=== PATIENT | female | born 1955 | race Caucasian/White ===

== ENCOUNTER 2018-05-25 06:16 | Observation (INO) | payer BC ==
[2018-05-25] VITALS (7 sets, daily range): BP systolic 92–138; BP diastolic 51–62
[~2018-05-25] VITALS: Ht 160 cm; Wt 93.0 kg
[~2018-05-25 06:16] MED LIST: GLIM2TAB2 PO; HYDR12.58 PO; INSU100V13 SQ; LEVO137T3 PO; LISI10TA2 PO; LORA1TAB47 PO; METF10007 PO; PITA2TAB2 PO; VIT1TABL34 PO
[2018-05-25] MEDS: IV RINGERS,LACTATED 1000ML 1,000 ML IV SCH ×2 (06:53→09:57)
[2018-05-25] MEDS ORDERED: fentaNYL PF VIAL 100 MCG/2 ML VIAL IV PRN (07:00)
[2018-05-25] MEDS ORDERED: ONDANSETRON PF 4 MG/2 ML VIAL. IV PRN ×2 (07:00→09:30)
[2018-05-25] MEDS ORDERED: LIDOCAINE 1% PF 2 ML VIAL. ID PRN (07:00)
[2018-05-25] MEDS ORDERED: PROCHLORPERAZINE 10 MG/2 ML VIAL. IV PRN (07:00)
[2018-05-25] MEDS ORDERED: HYDROmorphone 2 MG/ML VIAL IV PRN (07:00)
[2018-05-25] MEDS ORDERED: MIDAZOLAM HCL/PF 2 MG/2 ML VIAL. ONE (07:26)
[2018-05-25] MEDS ORDERED: ROCURONIUM 50 MG/5 ML VIAL. ONE (07:26)
[2018-05-25] MEDS ORDERED: fentaNYL PF VIAL 100 MCG/2 ML VIAL ONE ×2 (07:26→09:11)
[2018-05-25] MEDS ORDERED: PROPOFOL 20 ML IV ONE (07:27)
[2018-05-25] MEDS ORDERED: DEXAMETHASONE SOD PHOS 20 MG/5 ML VIAL. ONE (07:27)
[2018-05-25] MEDS ORDERED: SEVOFLURANE 61 TO 120 MINUTES. IH ONE (07:27)
[2018-05-25] MEDS ORDERED: ONDANSETRON PF 4 MG/2 ML VIAL. ONE (07:27)
[2018-05-25] MEDS ORDERED: PHENYLEPHRINE in 0.9% NACL PF 1 MG/10 ML SYRINGE. IV ONE (07:51)
[2018-05-25] MEDS ORDERED: GLYCOPYRROLATE 1 MG/5 ML VIAL. ONE (08:43)
[2018-05-25] MEDS ORDERED: NEOSTIGMINE METHYLSULFATE 5 MG/5 ML SYRINGE. ONE (08:44)
[2018-05-25] MEDS ORDERED: KETOROLAC 30 MG/ML INJ FOR OR. INJ ONE (09:08)
[2018-05-25] MEDS ORDERED: 0.9 % SODIUM CHLORIDE 10 ML DISP.SYRIN. IV PRN (09:30)
[2018-05-25] MEDS ORDERED: diphenhydrAMINE HCL 25 MG CAPSULE PO PRN (09:30)
[2018-05-25] MEDS ORDERED: oxyCODONE IR 5 MG TABLET PO PRN (09:30)
[2018-05-25] MEDS ORDERED: DEXTROSE 50% 25 GM / 50ML DISP.SYRIN. IV PRN (09:30)
[2018-05-25] MEDS ORDERED: MORPHINE SULFATE 2 MG/ML VIAL. IV PRN ×2 (09:30→10:15)
--- NOTE | 2018-05-25 09:36 | PDOC4 ---
Operative Note Operative Note Operative Note: Preoperative Diagnosis: Ventral hernia Postoperative Diagnosis: Same Procedure: Ventral hernia repair with mesh Surgeon: Dionte Technical Inspector: Eliot TAI Anesthesia: Gen. EBL: 25 mL Specimen: Hernia sac to pathology Drains: 19 Kyr[place]z round Pa drain to abdominal wall Complications: None Indication: The patient is a 62-year-old female who is referred due to a sizable mid abdominal hernia. She was offered surgical repair and we discussed the use of mesh. The risks of surgery were reviewed which include bleeding, infection, recurrence, pain, mesh reaction, bowel injury, anesthetic risk, potential need for additional surgery or procedure. She understands and would like to proceed. Description: The patient was taken to the operating room and placed supine on the operating table. Gen. anesthesia was performed. The abdomen was prepped with ChloraPrep and draped with sterile towels, sheets, and an Ioban. A vertical midline incision was made superior to the umbilicus and the location of the hernia. Cautery dissection was carried down into the subcutaneous tissues. The hernia sac was quite large and occupied a significant area of the subcutaneous space. The hernia sac was fully mobilized down to the level of the fascial defect. The hernia sac was opened and numerous adhesions of omentum to the sac were mobilized. The omentum was then reduced. Much of the excess redundant hernia sac was excised and sent to pathology. An elliptical Ventrio ST mesh was utilized for the repair. The mesh was placed intraperitoneally with the barrier facing the viscera. The mesh provided wide coverage of the hernia defect with overlap in all directions. The mesh was sutured around its periphery using interrupted 0 Prolene stitches placed in a horizontal mattress fashion. The secure strap tacking device was then used for additional fixation to the fascia. The attenuated fascia was then closed over the mesh with 0 Prolene. The subcutaneous tissue was approximated with 2-0 and 3-0 Vicryl. The skin was approximated with a 4-0 Monocryl suture. The patient tolerated the procedure well and was sent to the recovery room in stable condition. At the end of the case all counts were correct. PAYAL HEREDIA MD May 25, 2018 09:36
[2018-05-25] MEDS: fentaNYL PF VIAL 100 MCG/2 ML VIAL IV PRN ×3 (09:44→10:11)
[2018-05-25] MEDS ORDERED: MORPHINE SULFATE 4 MG/ML VIAL. IV PRN ×2 (10:15)
[2018-05-25] MEDS: MORPHINE SULFATE 2 MG/ML VIAL. IV PRN ×2 (10:22→10:41)
[2018-05-25] MEDS: IV 1/2 NORMAL SALINE 1,000 ML IV SCH (11:25)
[2018-05-25] MEDS: INSULIN LISPRO 300 UNITS/3 ML INSULN.PEN. SQ SCH ×2 (12:32→16:56)
[2018-05-25] MEDS: oxyCODONE IR 5 MG TABLET PO PRN ×2 (16:51→21:03)
[2018-05-25] MEDS: metFORMIN 500 MG TABLET PO SCH (16:51)
[2018-05-25] MEDS ORDERED: ATORVASTATIN CALCIUM 10 MG TABLET. PO SCH (21:00)
[2018-05-25] MEDS ORDERED: INSULIN GLARGINE 300 UNITS/3 ML INSULN.PEN. SQ SCH (21:00)
[2018-05-25] MEDS: MULTIVITAMIN I-VITE TABLET. PO SCH (21:01)
[2018-05-26] MEDS: IV 1/2 NORMAL SALINE 1,000 ML IV SCH ×2 (00:30→12:17)
[2018-05-26 03:25] VITALS: BP 93/53
[2018-05-26] MEDS: oxyCODONE IR 5 MG TABLET PO PRN ×3 (04:59→12:58)
[2018-05-26 07:00] VITALS: BP 121/63
[2018-05-26] MEDS ORDERED: LEVOTHYROXINE 137 MCG TABLET PO SCH (07:30)
[2018-05-26] MEDS: INSULIN LISPRO 300 UNITS/3 ML INSULN.PEN. SQ SCH ×2 (07:50→11:59)
[2018-05-26] MEDS: metFORMIN 500 MG TABLET PO SCH (08:56)
[2018-05-26] MEDS: MULTIVITAMIN I-VITE TABLET. PO SCH (08:56)
[2018-05-26] MEDS ORDERED: hydroCHLOROthiazide 12.5 MG CAPSULE PO SCH (09:00)
[2018-05-26] MEDS ORDERED: PSEUDOEPHEDRINE PO SCH (09:00)
[2018-05-26] MEDS ORDERED: PSEUDOEPHEDRINE ER 120 MG TABLET.ER. PO SCH (09:00)
[2018-05-26] MEDS ORDERED: CETIRIZINE HCL 10 MG TABLET. PO SCH (09:00)
[2018-05-26] MEDS ORDERED: LISINOPRIL 10 MG TABLET PO SCH (09:00)
[2018-05-26] MEDS ORDERED: GLIMEPIRIDE 2 MG TABLET. PO SCH (09:00)
[2018-05-26] MEDS ORDERED: LORATADINE PO SCH (09:00)
[2018-05-26 11:00] VITALS: BP 126/66
--- NOTE | 2018-05-26 11:16 | PDOC ---
ROSY SARMIENTO AUTOMATIC WHEEL LINE OPERATOR 05/26/18 1116: SURGICAL PROGRESS NOTE Subjective has not been up yet since surgery significant complaints of pain desat and required 02 this AM Vital Signs Vital Signs Date Time Temp Pulse Resp B/P (MAP) Pulse Ox O2 Delivery O2 Flow Rate FiO2 05/26/18 08:57 102 121/63 05/26/18 08:55 16 Nasal Cannula 2.0 05/26/18 07:00 98.6 91 98.6 I&O Intake and Output 05/26/18 07:00 Intake Total 2720 ml Output Total 25 ml Balance 2695 ml Intake Oral 600 ml IV Total 1560 ml Other 560 ml Output Estimated Blood Loss 25 ml General: Alert, Oriented X3, Cooperative, No acute distress Abdomen: Soft, Other (binder in place, ISAIAH serosang) Labs Laboratory Tests Test 05/25/18 09:34 05/25/18 12:21 05/25/18 16:51 05/25/18 20:40 Glucose (Fingerstick) 198 mg/dL (70-99) 203 mg/dL (70-99) 202 mg/dL (70-99) 208 mg/dL (70-99) Test 05/26/18 07:27 Glucose (Fingerstick) 137 mg/dL (70-99) Laboratory Tests Test 05/25/18 12:21 05/25/18 16:51 05/25/18 20:40 05/26/18 07:27 Glucose (Fingerstick) 203 mg/dL (70-99) 202 mg/dL (70-99) 208 mg/dL (70-99) 137 mg/dL (70-99) Problem List s/p VIH ambulate wean off O2 plan home tomorrow PAYAL HEREDIA MD 05/26/18 1350: SURGICAL PROGRESS NOTE Assessment/Plan Reviewed, drop in O2 noted; work on mobility; expect DC tomorrow if sats improve ROSY SARMIENTO APRN May 26, 2018 11:16 PAYAL HEREDIA MD May 26, 2018 13:50
--- NOTE | 2018-05-26 11:21 | DISCH ---
DISCHARGE INSTRUCTIONS Condition on Discharge Condition on Discharge: Stable Activity After Discharge Activity Instructions for Disc: Activity as tolerated Bathing Instructions: Shower-keep dressing dry Lifting Instructions after Dis: No heavy lifting, No pulling or pushing (x 20lbsc) Driving Instructions after Dis: Do not drive Diet after Discharge Diet after Discharge: Diabetic No Calorie Level Wound Incision Care Wound/Incision Care: Change dressing, May get incision wet Other wound/incision instructi: drain care as instructed, wear binder Contacting the DRDario after DC Call your doctor for: Concerns you may have Follow-Up Follow up with: Dr Rapp 2 weeks, call to schedule [phone] ROSY SARMIENTO PRODUCT TEST SPECIALIST May 26, 2018 11:21
[2018-05-26] MEDS ORDERED: OXYC5TAB4 PO (11:25)
--- NOTE | 2018-05-26 14:08 | PATHOLOGY ---
[facility] Accession Number: [id number] . 01 Material submitted: . HERNIA SAC . 01 Clinical history: . Hernia sac . 02 Diagnosis: Segment of focal mesothelial-lined fibromembranous and fibroadipose tissue, ventral herniorrhaphy: - Hernia sac. . (JPM:mml; 05/26/18) [facility]/05/26/2018 . 02 Electronically signed: . Blu Rubin MD, Pathologist NPI- [id number] . 01 Gross description: . The specimen is received in formalin, labeled "[place], Jennifer, hernia sac" and consists of a segment of pink-sam membranous tissue with a small amount of attached yellow adipose tissue measuring 9.0 x 5.5 x 1.0 cm. No nodules or mass lesions are identified. Quarrying Manager sections are submitted in A1. (SDY; 05/25/2018) SYU/SYU . 02 Pathologist provided ICD-10: K43.9 . 02 CPT . 844237 Specimen Comment: A courtesy copy of this report has been sent to Specimen Comment: [phone], . Specimen Comment: Report sent to / DR LONDONO Performed at: 01 [facility] [address], [place], [place] [id number] MD Jesus Hatfield MD Phone: [phone] Performed at: 02 [facility] [address] [place], [place] [id number] MD Blu Rubin MD Phone: [phone]
[2018-05-26 15:00] VITALS: BP 113/57
== END 2018-05-26 16:25 | disposition home or self-care (01) ==
LOC: SURG 06:16 → 4 NORTH 11:10
PROVIDERS: ADMIT Surgery; ATTEND Surgery
DX: K43.9 Ventral hernia without obstruction or gangrene (principal); K66.0 Peritoneal adhesions (postprocedural) (postinfection)
CPT/HCPCS: 49560; 49568; 82962; 88300; 96372; 96374; 96375; A7015; G0378; G0379; J0690; J1100; J1815; J1885; J2250; J2270; J2370; J2405; J2704; J2710; J3010; J3490

== ENCOUNTER 2018-05-27 21:57 | Emergency (ER) | payer BC ==
[~2018-05-27] VITALS: Ht 160 cm; Wt 93.9 kg
[~2018-05-27 21:57] MED LIST changes: +OXYC5TAB4 PO
[2018-05-27 22:00] VITALS: BP 118/70
[2018-05-27] MEDS ORDERED: fentaNYL PF VIAL 100 MCG/2 ML VIAL IV ONE (22:45)
[2018-05-27] MEDS ORDERED: ONDANSETRON PF 4 MG/2 ML VIAL. IV ONE (22:45)
[2018-05-27 23:00] LABS: BASO # 0.1 x10^3/uL (0.0-0.2); BASO % 1 % (0-3); EOS # 0.2 x10^3/uL (0.0-0.7); EOS % 2 % (0-3); HEMATOCRIT 36.7 % (36.0-47.0); HEMOGLOBIN 12.5 g/dL (12.0-15.5); LYMPH # 2.6 x10^3/uL (1.0-4.8); LYMPH % 22 % (24-48); MEAN CORPUSCULAR HEMOGLOBIN 28 pg (25-35); MEAN CORPUSCULAR HGB CONC 34 g/dL (31-37); MEAN CORPUSCULAR VOLUME 82 fL (79-100); MONO # 0.9 x10^3/uL (0.0-1.1); MONO % 7 % (0-9); NEUT % 68 % (31-73); PLATELET COUNT 249 x10^3/uL (140-400); RED CELL DISTRIBUTION WIDTH 15.5 % (11.5-14.5); WHITE BLOOD COUNT 11.8 x10^3/uL (4.0-11.0)
[2018-05-27 23:08] LABS: CALCIUM 9.1 mg/dL (8.5-10.1); CREATININE 1.4 mg/dL (0.6-1.0); POTASSIUM 4.2 mmol/L (3.5-5.1)
[2018-05-27 23:16] LABS: ALBUMIN 2.9 g/dL (3.4-5.0); ALBUMIN/GLOBULIN RATIO 0.6 (1.0-1.7); TOTAL BILIRUBIN 0.8 mg/dL (0.2-1.0); TOTAL PROTEIN 7.5 g/dL (6.4-8.2)
--- NOTE | 2018-05-27 23:34 | PHYS DOC ---
Past Medical History Past Medical History: Diabetes-Type II, Hypertension, Hypothyroid Past Surgical History: Cholecystectomy, Knee Replacement, Other Additional Past Surgical Histo: Umbilical Hernia Repair Alcohol Use: Occasionally Drug Use: None Adult General Chief Complaint Chief Complaint: LOWER EXTREMITY SWELLING HPI HPI Patient is a 62 year old female who presents with right foot pain and swelling that started this evening. Patient denies any history of trauma to the area. She does have a history of ITP and had a hernia surgery 2 days ago. She denies any pain into the calf. Review of Systems Review of Systems Constitutional: Denies fever or chills [] Eyes: Denies change in visual acuity, redness, or eye pain [] Respiratory: Denies cough or shortness of breath [] Cardiovascular: Denies chest pain or palpitations GI: Denies abdominal pain, nausea, vomiting : Denies dysuria or hematuria [] Musculoskeletal: Reports right foot pain and swelling Integument: Denies rash or skin lesions [] Neurologic: Denies headache, focal weakness or sensory changes [] All other systems were reviewed and found to be within normal limits, except as documented in this note. Current Medications Current Medications Current Medications Medications (Trade) Dose Ordered Sig/Adrian Start Time Stop Time Status Last Admin Dose Admin Fentanyl Citrate (Fentanyl 2ml Vial) 50 mcg 1X ONCE 05/28/18 00:30 05/28/18 00:31 DC 05/28/18 00:27 50 MCG Ondansetron HCl (Zofran) 4 mg 1X ONCE 05/27/18 22:45 05/27/18 22:46 DC 05/27/18 22:56 4 MG Rivaroxaban (Xarelto) 15 mg 1X ONCE 05/28/18 00:15 05/28/18 00:16 DC 05/28/18 00:27 15 MG Allergies Allergies Allergies Coded Allergies Type Severity Reaction Last Updated Verified Iodinated Contrast- Oral and IV Dye Allergy Intermediate HIVES, "RACING HEART "05/25/18 Yes clarithromycin Allergy Intermediate Hives 05/25/18 Yes Physical Exam Physical Exam Constitutional: Well developed, well nourished, no acute distress, non-toxic appearance. [] HENT: Normocephalic, atraumatic Eyes: PERRLA, EOMI, conjunctiva normal, no discharge. [] Neck: Normal range of motion, no tenderness, supple, no stridor. [] Cardiovascular:Heart rate regular rhythm, no murmur [] Lungs & Thorax: Bilateral breath sounds clear to auscultation [] Abdomen: Bowel sounds normal, soft, no tenderness Skin: Warm, dry, no erythema, no rash. [] Extremities: Tenderness, limited range of motion, swelling and warmth to touch to right foot. No erythema noted Neurologic: Alert and oriented X 3, normal motor function, normal sensory function, no focal deficits noted. [] Psychologic: Affect normal, judgement normal, mood normal. [] Current Patient Data Vital Signs Vital Signs Date Time Temp Pulse Resp B/P (MAP) Pulse Ox O2 Delivery O2 Flow Rate FiO2 05/27/18 22:58 16 90 Room Air 05/27/18 22:00 98.8 101 118/70 (86) 98.8 Lab Values Laboratory Tests Test 05/27/18 22:50 White Blood Count 11.8 x10^3/uL (4.0-11.0) H Red Blood Count 4.50 x10^6/uL (3.50-5.40) Hemoglobin 12.5 g/dL (12.0-15.5) Hematocrit 36.7 % (36.0-47.0) Mean Corpuscular Volume 82 fL (79-100) Mean Corpuscular Hemoglobin 28 pg (25-35) Mean Corpuscular Hemoglobin Concent 34 g/dL (31-37) Red Cell Distribution Width 15.5 % (11.5-14.5) H Platelet Count 249 x10^3/uL (140-400) Neutrophils (%) (Auto) 68 % (31-73) Lymphocytes (%) (Auto) 22 % (24-48) L Monocytes (%) (Auto) 7 % (0-9) Eosinophils (%) (Auto) 2 % (0-3) Basophils (%) (Auto) 1 % (0-3) Neutrophils # (Auto) 8.0 x10^3uL (1.8-7.7) H Lymphocytes # (Auto) 2.6 x10^3/uL (1.0-4.8) Monocytes # (Auto) 0.9 x10^3/uL (0.0-1.1) Eosinophils # (Auto) 0.2 x10^3/uL (0.0-0.7) Basophils # (Auto) 0.1 x10^3/uL (0.0-0.2) Sodium Level 139 mmol/L (136-145) Potassium Level 4.2 mmol/L (3.5-5.1) Chloride Level 100 mmol/L (98-107) Carbon Dioxide Level 29 mmol/L (21-32) Anion Gap 10 (6-14) Blood Urea Nitrogen 19 mg/dL (7-20) Creatinine 1.4 mg/dL (0.6-1.0) H Estimated GFR (Cockcroft-Gault) 38.0 BUN/Creatinine Ratio 14 (6-20) Glucose Level 166 mg/dL (70-99) H Calcium Level 9.1 mg/dL (8.5-10.1) Total Bilirubin 0.8 mg/dL (0.2-1.0) Aspartate Amino Transferase (AST) 16 U/L (15-37) Alanine Aminotransferase (ALT) 19 U/L (14-59) Alkaline Phosphatase 72 U/L (46-116) Total Protein 7.5 g/dL (6.4-8.2) Albumin 2.9 g/dL (3.4-5.0) L Albumin/Globulin Ratio 0.6 (1.0-1.7) L Laboratory Tests 05/27/18 22:50 Laboratory Tests 05/27/18 22:50 EKG EKG [] Radiology/Procedures Radiology/Procedures X-ray right foot-no acute findings[] CV US Right LE -- echogenic foci in Rt CFV, non-mobile Course & Med Decision Making Course & Med Decision Making Pertinent Labs and Imaging studies reviewed. (See chart for details) d/w Dr. Londono, who is agreeable to xarelto rx. Plan: xarelto rx, f/u with PCP, return precautions reviewed[] Dragon Disclaimer Dragon Disclaimer This electronic medical record was generated, in whole or in part, using a voice recognition dictation system. Departure Departure Impression: Primary Impression: DVT (deep venous thrombosis) Disposition: 01 HOME, SELF-CARE Condition: IMPROVED Referrals: DANIELLE LONDONO (PCP) Patient Instructions: Deep Vein Thrombosis Additional Instructions: Call Dr. Londono for follow up appointment. Scripts Rivaroxaban (XARELTO) 15 Mg Tablet 15 MG PO BID, #42 TAB Prov: PETER ALMARAZ YOUTH SERVICES SPECIALIST 05/28/18 Attending Signature Attending Signature I have reviewed the PA/REPAIR SERVICE DISPATCHER's note and plan of care. I was available for consultation as needed during the patient's visit in the emergency department. I agree with the clinical impression, plan, and disposition. Problem Qualifiers Primary Impression: DVT (deep venous thrombosis) DVT location: lower extremity Affected thrombotic vein of extremity: femoral Chronicity: acute Laterality: right Qualified Codes: I82.411 - Acute embolism and thrombosis of right femoral vein PETER ALMARAZ APRN May 27, 2018 23:34 RUSSELL MCGUIRE DO May 28, 2018 01:21
[2018-05-28] MEDS ORDERED: RIVA15TA PO (00:08)
[2018-05-28] MEDS ORDERED: RIVAROXABAN 15 MG TABLET. PO ONE (00:15)
--- NOTE | 2018-05-28 00:19 | RAD ---
Right lower extremity venous duplex study 05/27/2018 Clinical History: Right leg pain and swelling. Recent surgery. Technique: Using a combination of real time ultrasound imaging and color-flow and pulse Doppler imaging techniques along with graded compression and augmentation, duplex evaluation of the deep venous system of the right lower extremity was performed. Multiple images were obtained. Findings: A small echogenic area which likely represents nonocclusive thrombus is seen involving the right common femoral vein. This measures 1 cm in greatest diameter. The right superficial femoral veins are duplicated and patent. The right popliteal vein is patent. The peroneal and posterior tibial veins within the right calf are patent. IMPRESSION: A small echogenic area which likely represents nonocclusive thrombus (DVT) is seen involving the right common femoral vein. Electronically signed by: Jose Hernandez MD (05/28/2018 12:15 AM) [facility]
[2018-05-28] MEDS ORDERED: fentaNYL PF VIAL 100 MCG/2 ML VIAL IV ONE (00:30)
--- NOTE | 2018-05-28 02:34 | RAD ---
Three-view right foot radiographs 05/27/2018 CLINICAL HISTORY: Right foot pain and swelling. AP, lateral and oblique digital radiographs of the right foot were obtained. No fracture or dislocation of the right foot is seen. Mild to moderate degenerative changes are seen involving the interphalangeal joints and MTP joints along with the tarsometatarsal joints and tarsal joints of the right foot. Moderate to large enthesophyte formation is seen involving the posterior right calcaneus. There is mild hallux valgus deformity. IMPRESSION: Degenerative changes are seen within the right foot as outlined above. No acute osseous abnormality is seen. Electronically signed by: Jose Hernandez MD (05/28/2018 2:30 AM) [facility]
== END 2018-05-28 00:37 | disposition home or self-care (01) ==
LOC: ER 21:57
DX: I82.411 Acute embolism and thrombosis of right femoral vein (principal); E11.9 Type 2 diabetes mellitus without complications; I10 Essential (primary) hypertension; E03.9 Hypothyroidism, unspecified; Z90.49 Acquired absence of other specified parts of digestive tract; Z96.659 Presence of unspecified artificial knee joint; Z91.041 Radiographic dye allergy status; Z88.1 Allergy status to other antibiotic agents
CPT/HCPCS: 36415; 73630; 80053; 85025; 93971; 96374; 96375; 96376; 99284; J2405; J3010

== ENCOUNTER 2018-05-28 09:14 | Emergency (ER) | payer BC ==
[~2018-05-28] VITALS: Ht 160 cm; Wt 93.9 kg
[~2018-05-28 09:14] MED LIST changes: +RIVA15TA PO
--- NOTE | 2018-05-28 09:59 | PHYS DOC ---
Past Medical History Past Medical History: Diabetes-Type II, Hypertension, Hypothyroid Past Surgical History: Cholecystectomy, Knee Replacement, Other Additional Past Surgical Histo: Umbilical Hernia Repair Smoking: Cigarettes (The patient is a nonsmoker.) Alcohol Use: Occasionally Drug Use: None Adult General Chief Complaint Chief Complaint: LOWER EXT PAIN HPI HPI Patient is a 62-year-old female who presents to the emergency department for evaluation. She states that she recently had a hernia surgery, and was seen in the emergency department last night for right foot pain which turned out to be a DVT in her right leg. She states that this morning she began having pain in her left foot similar to the pain that she had in her right foot last night. She denies any chest pain or shortness of breath, dizziness or lightheadedness, numbness, or weakness. Palpation of her left foot seems to worsen her pain. There are no alleviating factors to her symptoms. Review of Systems Review of Systems Constitutional: Denies fever or chills [] Eyes: Denies change in visual acuity, redness, or eye pain [] HENT: Denies nasal congestion or sore throat [] Respiratory: Denies cough or shortness of breath [] Cardiovascular: The patient denies any shortness of breath, chest pain, palpitations, or orthopnea [] GI: Denies abdominal pain, nausea, vomiting, bloody stools or diarrhea [] : Denies dysuria or hematuria [] Musculoskeletal: Denies back pain or joint pain, except as noted in history of present illness [] Integument: Denies rash or skin lesions [] Neurologic: Denies headache, focal weakness or sensory changes [] Endocrine: Denies polyuria or polydipsia [] All other systems were reviewed and found to be within normal limits, except as documented in this note. Allergies Allergies Allergies Coded Allergies Type Severity Reaction Last Updated Verified Iodinated Contrast- Oral and IV Dye Allergy Intermediate HIVES, "RACING HEART "05/25/18 Yes clarithromycin Allergy Intermediate Hives 05/25/18 Yes atorvastatin Adverse Reaction Mild 05/28/18 Yes Physical Exam Physical Exam PHYSICAL EXAM: CONSTITUTIONAL: Well developed, well nourished HEAD: normocephalic, atraumatic EENT: PERRL, EOMI. Conjunctivae normal color, sclerae non-icteric; moist mucous membranes. NECK: Supple, non-tender; no meningismus. LUNGS: Lungs CTA, breathing even and unlabored. Normal air movement. HEART: Regular rate and rhythm, no murmur CHEST: No deformity; non-tender ABDOMEN: The abdomen is soft, and non-tender, no masses or bruits. EXTREM: Normal ROM; no deformity, Normal pulses palpable in all extremities. There is mild/trace bilateral pedal edema. There is mild tenderness to palpation to the feet bilaterally, and calves bilaterally, without any warmth or erythema, or focal bony tenderness to palpation or joint tenderness. SKIN: No rash; no diaphoresis NEURO: Alert; normal speech and cognition; CN's grossly intact; strength grossly intact without focal deficit. BACK: No CVA TTP. Current Patient Data Vital Signs Vital Signs Date Time Temp Pulse Resp B/P (MAP) Pulse Ox O2 Delivery O2 Flow Rate FiO2 05/28/18 09:48 98.8 103 18 112/55 (74) 95 Room Air 98.8 EKG EKG [] Radiology/Procedures Radiology/Procedures [PROCEDURE: VENOUS LOWER EXTREMITY LEFT Left lower extremity venous ultrasound, 05/28/2018 : History: Left leg pain Duplex evaluation including grayscale, color flow and spectral Doppler analysis was performed. The left common femoral, superficial femoral and popliteal veins are patent. Thrombus is identified in one posterior tibial vein in the left lower leg. IMPRESSION: 1. No sonographic evidence of deep vein thrombosis from the level of the left groin down through the popliteal fossa. 2. Thrombosis is evident in one posterior tibial vein in the left lower leg. ] PROCEDURE: FOOT LEFT 3V Left foot, 3 views, 05/28/2018: HISTORY: Foot pain No acute fracture or dislocation is identified. There is moderate degenerative change at the first MTP joint. There are mild scattered degenerative changes at interphalangeal joints and at the midfoot. There is a small inferior calcaneal spur. Mild diffuse subcutaneous edema is evident. IMPRESSION: 1. Scattered degenerative changes. 2. No acute bony abnormality is detected. Course & Med Decision Making Course & Med Decision Making Pertinent Labs last night, and Imaging studies reviewed. (See chart for details) []11:00 AM: The patient's condition remains a stable. I discussed test results with the patient, given the fact that she just started Xarelto yesterday and recently had surgery and continue her on the previously prescribed anticoagulants, and I stressed importance of close follow-up with her primary care provider to switch the dose of the Xarelto from 15 mg twice a day to 20 mg daily in 3 weeks. We discussed return precautions in detail, specifically for signs of pulmonary embolism. The patient denies shortness of breath or chest pain. Dragon Disclaimer Dragon Disclaimer This electronic medical record was generated, in whole or in part, using a voice recognition dictation system. Departure Departure Impression: Primary Impression: Deep vein thrombosis of left lower limb Disposition: 01 HOME, SELF-CARE Condition: STABLE Referrals: DANIELLE LONDONO (PCP) Patient Instructions: Deep Vein Thrombosis LI ZUNIGA MD May 28, 2018 09:59
--- NOTE | 2018-05-28 10:19 | RAD ---
Left foot, 3 views, 05/28/2018: HISTORY: Foot pain No acute fracture or dislocation is identified. There is moderate degenerative change at the first MTP joint. There are mild scattered degenerative changes at interphalangeal joints and at the midfoot. There is a small inferior calcaneal spur. Mild diffuse subcutaneous edema is evident. IMPRESSION: 1. Scattered degenerative changes. 2. No acute bony abnormality is detected. Electronically signed by: Oral Heck MD (05/28/2018 10:15 AM) [facility]
--- NOTE | 2018-05-28 10:51 | RAD ---
Left lower extremity venous ultrasound, 05/28/2018 : History: Left leg pain Duplex evaluation including grayscale, color flow and spectral Doppler analysis was performed. The left common femoral, superficial femoral and popliteal veins are patent. Thrombus is identified in one posterior tibial vein in the left lower leg. IMPRESSION: 1. No sonographic evidence of deep vein thrombosis from the level of the left groin down through the popliteal fossa. 2. Thrombosis is evident in one posterior tibial vein in the left lower leg. Electronically signed by: Oral Heck MD (05/28/2018 10:48 AM) [facility]
[2018-05-28] MEDS ORDERED: RIVAROXABAN 15 MG TABLET. PO ONE (11:15)
[2018-05-28 11:20] VITALS: BP 116/56
== END 2018-05-28 11:23 | disposition home or self-care (01) ==
LOC: ER 09:14
DX: I82.492 Acute embolism and thrombosis of other specified deep vein of left lower extremity (principal); E11.9 Type 2 diabetes mellitus without complications; I10 Essential (primary) hypertension; E03.9 Hypothyroidism, unspecified; Z90.49 Acquired absence of other specified parts of digestive tract; Z96.659 Presence of unspecified artificial knee joint; Z88.8 Allergy status to other drugs, medicaments and biological substances; Z88.1 Allergy status to other antibiotic agents; Z91.041 Radiographic dye allergy status
CPT/HCPCS: 73630; 93971; 99283; 99284-25